=== PATIENT | female | born 1985 | race Caucasian/White ===

== ENCOUNTER 2021-09-18 23:55 | Emergency (ER) | payer MEDICARE, MEDICAID ==
[~2021-09-18] VITALS: Ht 149.9 cm; Wt 68.0 kg
[2021-09-18 23:58] VITALS: BP 116/71
--- NOTE | 2021-09-19 00:03 | NUR ---
pt ambulated to bed #11
--- NOTE | 2021-09-19 00:43 | NUR ---
Dr. Murcia examming patient.
--- NOTE | 2021-09-19 00:45 | NUR ---
36 YO F BIB SELF WITH C/C OF CONGESTION, RUNNY NOSE, COUGH AND DIFFICULTY BREATHING X3-4DAYS. DENIES PAIN. LUNG SOUNDS CLEAR. DENIES HX ALLERGY TO SULFAS
[2021-09-19] MEDS ORDERED: AMOX500C25 PO (00:51)
[2021-09-19] MEDS ORDERED: PRED20TA6 PO (00:51)
[2021-09-19] MEDS ORDERED: DEXT5SYR3 PO (00:51)
[2021-09-19 01:05] VITALS: BP 116/71
--- NOTE | 2021-09-19 01:10 | NUR ---
Patient discharged with v/s stable. Written and verbal after care instructions given and explained. Patient alert, oriented and verbalized understanding of instructions. Ambulatory with steady gait. All questions addressed prior to discharge. ID band removed. Patient advised to follow up with PMD. Rx of AMXOCILLIN, GUAIFENESIN , AND PREDNISONE given. Patient educated on indication of medication including possible reaction and side effects. Opportunity to ask questions provided and answered.
== END 2021-09-19 01:10 | disposition home or self-care (01) ==
LOC: MED 23:55
DX: L08.9 Local infection of the skin and subcutaneous tissue, unspecified (principal); Z79.899 Other long term (current) drug therapy
CPT/HCPCS: 99283

== ENCOUNTER 2021-12-24 02:01 | Emergency (ER) | payer OTHER, MEDICARE, MEDICAID ==
[~2021-12-24] VITALS: Ht 149.9 cm; Wt 59.0 kg
[~2021-12-24 02:01] MED LIST: AMOX500C25 PO; DEXT5SYR3 PO; PRED20TA6 PO
--- NOTE | 2021-12-24 02:15 | NUR ---
PATIENT TO LOBBY
[2021-12-24] MEDS ORDERED: ALBU0.0912 IH (02:17)
[2021-12-24] MEDS ORDERED: ONDA-188 SL (02:17)
[2021-12-24 02:37] VITALS: BP 122/77
--- NOTE | 2021-12-24 04:05 | NUR ---
PT CLEARED FOR DISCHARGE BY DR. ROTH. PT CALLED IN LOBBY AND OUTSIDE WITH NO ANSWER. PT LEFT WITHOUT INSTRUCTIONS
== END 2021-12-24 04:05 | disposition home or self-care (01) ==
LOC: MED 02:01
DX: R05.9 Cough, unspecified (principal); R09.89 Other specified symptoms and signs involving the circulatory and respiratory systems; R50.9 Fever, unspecified; Z20.822 Contact with and (suspected) exposure to COVID-19; Z79.899 Other long term (current) drug therapy
CPT/HCPCS: 99283

== ENCOUNTER 2021-12-25 23:40 | Emergency (ER) | payer OTHER, MEDICARE, MEDICAID ==
[~2021-12-25 23:40] MED LIST changes: +ALBU0.0912 IH; +ONDA-188 SL
--- NOTE | 2021-12-26 00:07 | NUR ---
CALLED TO TRIAGE, NO ANSWER
--- NOTE | 2021-12-26 00:25 | NUR ---
CALLED TO TRIAGE, NO ANSWER. CALLED PTS PHONE, PT ANSWERED AND SAID SHE WAS AT HOME. PT LWBS
[2021-12-26] MEDS ORDERED: PRED20TA5 PO (05:05)
== END 2021-12-26 00:07 | disposition left against medical advice (07) ==
LOC: MED 23:40
DX: R50.9 Fever, unspecified (principal); Z53.21 Procedure and treatment not carried out due to patient leaving prior to being seen by health care provider

== ENCOUNTER 2021-12-26 04:30 | Emergency (ER) | payer OTHER ==
[~2021-12-26] VITALS: Ht 149.9 cm; Wt 63.5 kg
[2021-12-26 04:32] VITALS: BP 117/66
--- NOTE | 2021-12-26 05:00 | NUR ---
SWABS OBTAINED AND SENT TO LAB
[2021-12-26] MEDS ORDERED: PRED20TA5 PO (05:05)
[2021-12-26 05:07] VITALS: BP 117/66
--- NOTE | 2021-12-26 05:07 | NUR ---
Patient discharged with v/s stable. Written and verbal after care instructions given and explained. Patient verbalized understanding. Ambulatory with steady gait. All questions addressed prior to discharge. Advised to follow up with PMD.
== END 2021-12-26 05:07 | disposition home or self-care (01) ==
LOC: MED 04:30
DX: J32.9 Chronic sinusitis, unspecified (principal); Z79.899 Other long term (current) drug therapy
CPT/HCPCS: 99281

== ENCOUNTER 2022-01-01 05:55 | Emergency (ER) | payer OTHER, MEDICAID ==
[~2022-01-01] VITALS: Ht 149.9 cm; Wt 54.4 kg
[~2022-01-01 05:55] MED LIST changes: +PRED20TA5 PO
[2022-01-01 06:22] VITALS: BP 125/80
--- NOTE | 2022-01-01 06:25 | NUR ---
TO LOBBY A/W BED AMBULATORY
--- NOTE | 2022-01-01 06:50 | NUR ---
PT TAKEN TO BED 7
--- NOTE | 2022-01-01 07:18 | NUR ---
Dr. Bojorquez examining patient.
--- NOTE | 2022-01-01 08:24 | NUR ---
36YR OLD FEMALE BIB SELF C/O OF BUMP ON BUTTOCK X2 DAYS. DENIES PAIN. PT STATES FEELING A BURNING SENSATION. HAS HX OF HEMMORRIODS. PT IN GOWN AND CHAPONE WITH DR WOOTEN AT BEDSIDE. BED AT LOWEST POSITION . PENDING DC PAPERWORK JOCELYN
[2022-01-01] MEDS ORDERED: PHEN28OI6 TP (08:36)
[2022-01-01] MEDS ORDERED: HYDR25SU37 RC (08:36)
[2022-01-01] MEDS ORDERED: DOCU-299 PO (08:36)
[2022-01-01] MEDS ORDERED: PSYL0.4C2 PO (08:36)
[2022-01-01 08:44] VITALS: BP 135/75
--- NOTE | 2022-01-01 08:44 | NUR ---
Patient discharged with v/s stable. Written and verbal after care instructions given and explained. Patient alert, oriented and verbalized understanding of instructions. Ambulatory with steady gait. All questions addressed prior to discharge. ID band removed. Patient advised to follow up with PMD. Rx of COLACE ANUCORT PREPARATION METAMUCIL given.
== END 2022-01-01 08:44 | disposition home or self-care (01) ==
LOC: MED 05:55
DX: K64.4 Residual hemorrhoidal skin tags (principal); Z88.2 Allergy status to sulfonamides
CPT/HCPCS: 99283

== ENCOUNTER 2022-03-02 17:09 | Emergency (ER) | payer OTHER, MEDICAID ==
[~2022-03-02] VITALS: Ht 147.3 cm; Wt 63.0 kg
[~2022-03-02 17:09] MED LIST changes: +DOCU-299 PO; +HYDR25SU37 RC; +PHEN28OI6 TP; +PSYL0.4C2 PO
[2022-03-02 17:37] VITALS: BP 132/61
[2022-03-02] MEDS ORDERED: AMPICILLIN/SULBACTAM 3 GM in NACL 0.9% 100 ML IV ONE (17:55)
[2022-03-02] MEDS ORDERED: DEXAMETHASONE 10 MG/ML VIAL IVP ONE (17:55)
[2022-03-02] MEDS ORDERED: NACL 0.9% 1,000 ML IV SCH (17:55)
[2022-03-02] MEDS ORDERED: KETOROLAC 15 MG/ML VIAL IVP ONE (17:55)
--- NOTE | 2022-03-02 18:26 | NUR ---
PT WALKED TO ROOM 3.
[2022-03-02] MEDS ORDERED: AMPICILLIN/SULBACTAM 3 GM VIAL ONE (18:28)
--- NOTE | 2022-03-02 19:13 | NUR ---
SL STARTED RAC 20G. PT WAS MEDICATED PER MD ORDER. REPORT ENDORSED TO UPCOMING RN. OFF DUTY.
[2022-03-02] MEDS ORDERED: IBUP-2213 PO (19:47)
[2022-03-02] MEDS ORDERED: AMOX1TAB8 PO (19:47)
--- NOTE | 2022-03-02 21:11 | NUR ---
Patient discharged with v/s stable. Written and verbal after care instructions given and explained. Patient alert, oriented and verbalized understanding of instructions. Ambulatory with steady gait. All questions addressed prior to discharge. ID band removed. Patient advised to follow up with PMD. Rx of motrin and augmentin given. Patient educated on indication of medication including possible reaction and side effects. Opportunity to ask questions provided and answered.
== END 2022-03-02 21:11 | disposition home or self-care (01) ==
LOC: MED 17:09
DX: J03.90 Acute tonsillitis, unspecified (principal); R59.0 Localized enlarged lymph nodes; Z86.69 Personal history of other diseases of the nervous system and sense organs; Z79.2 Long term (current) use of antibiotics; Z79.1 Long term (current) use of non-steroidal anti-inflammatories (NSAID); Z79.899 Other long term (current) drug therapy; Z88.2 Allergy status to sulfonamides
CPT/HCPCS: 96365; 96375; 99284; J0295; J1100; J1885; J7030

== ENCOUNTER 2023-08-11 07:53 | Emergency (ER) | payer BC, MEDICAID ==
[~2023-08-11] VITALS: Ht 149.9 cm; Wt 61.2 kg
[~2023-08-11 07:53] MED LIST changes: +AMOX1TAB8 PO; +IBUP-2213 PO
[2023-08-11 07:55] VITALS: BP 126/79; PULSE 96; RESP 17; TEMP 98.6; O2SAT 98
[2023-08-11] MEDS: ACETAMINOPHEN EXTRA STRENGTH 500 MG TAB PO ONE (08:20)
[2023-08-11] MEDS: IBUPROFEN 600 MG TAB PO ONE (08:20)
[2023-08-11] MEDS ORDERED: DEXT5SYR3 PO (08:30)
[2023-08-11] MEDS ORDERED: LORA1T1237 PO (08:30)
[2023-08-11] MEDS ORDERED: NAPR-54 PO (08:30)
[2023-08-11 10:38] VITALS: BP 126/79; PULSE 96; RESP 17; TEMP 98.6; O2SAT 98
== END 2023-08-11 08:42 | disposition home or self-care (01) ==
LOC: MED 07:53
DX: J06.9 Acute upper respiratory infection, unspecified (principal); B97.89 Other viral agents as the cause of diseases classified elsewhere; Z79.1 Long term (current) use of non-steroidal anti-inflammatories (NSAID); Z79.899 Other long term (current) drug therapy; Z88.0 Allergy status to penicillin; Z88.2 Allergy status to sulfonamides
CPT/HCPCS: 99282

== ENCOUNTER 2023-08-30 22:13 | Emergency (ER) | payer BC, MEDICAID ==
[~2023-08-30] VITALS: Ht 149.9 cm; Wt 54.4 kg
[~2023-08-30 22:13] MED LIST changes: +LORA1T1237 PO; +NAPR-337 PO
[2023-08-30 22:18] VITALS: BP 155/96; PULSE 106; RESP 18; TEMP 97.6; O2SAT 98
[2023-08-31 00:30] VITALS: BP 155/96; PULSE 106; RESP 18; TEMP 97.6; O2SAT 98
== END 2023-08-31 00:30 | disposition home or self-care (01) ==
LOC: MED 22:13
DX: S01.111A Laceration without foreign body of right eyelid and periocular area, initial encounter (principal); Z88.2 Allergy status to sulfonamides; Z88.8 Allergy status to other drugs, medicaments and biological substances; Z79.899 Other long term (current) drug therapy; X58.XXXA Exposure to other specified factors, initial encounter; Y93.89 Activity, other specified; Y92.89 Other specified places as the place of occurrence of the external cause; Y99.8 Other external cause status
CPT/HCPCS: 70160; 99283

== ENCOUNTER 2023-12-24 16:26 | Emergency (ER) | payer BC, MEDICAID ==
[~2023-12-24] VITALS: Ht 149.9 cm; Wt 61.3 kg
[2023-12-24 16:54] VITALS: BP 117/67; PULSE 99; RESP 18; TEMP 97.3; O2SAT 97
== END 2023-12-24 18:27 | disposition left against medical advice (07) ==
LOC: MED 16:26
DX: M79.671 Pain in right foot (principal); M79.672 Pain in left foot; R21 Rash and other nonspecific skin eruption; Z53.21 Procedure and treatment not carried out due to patient leaving prior to being seen by health care provider

== ENCOUNTER 2023-12-25 12:31 | Emergency (ER) | payer BC, MEDICAID ==
[~2023-12-25] VITALS: Ht 149.9 cm; Wt 60.3 kg
[2023-12-25 12:39] VITALS: BP 120/69; PULSE 106; RESP 20; TEMP 97.9; O2SAT 96
== END 2023-12-25 15:25 | disposition left against medical advice (07) ==
LOC: MED 12:31
DX: R21 Rash and other nonspecific skin eruption (principal); Z53.21 Procedure and treatment not carried out due to patient leaving prior to being seen by health care provider